=== PATIENT | male | born 1965 | race Caucasian/White ===

== ENCOUNTER 2020-08-28 13:57 | Emergency (ER) | payer SELFPAY ==
--- NOTE | ~2020-08-28 | XR_ITS ---
EXAMINATION: XR shoulder RT min 2V DATE: 08/28/2020 15:38 INDICATION: Right shoulder injury. TECHNIQUE: 4 views of right shoulder were obtained. COMPARISON: None. FINDINGS: There is inferior dislocation of the acromion with respect to distal clavicle. There is wid ening of coracoclavicular interval, consistent with coracoclavicular ligament tear. No fracture. Ther e is severe acromioclavicular joint osteoarthritis. The glenohumeral joint is normal. There are rios es of anterior fusion procedure in cervical spine. IMPRESSION: 1. Type III acromioclavicular separation. 2. Severe acromioclavicular joint osteoarthritis. Reviewed, dictated and finalized at location A.
[2020-08-28 14:58] VITALS: BP 124/72; PULSE 83; RESP 16; TEMP 36.4; O2SAT 96
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
[2020-08-28] MEDS: IBUPROFEN 600 MG TABLET PO (17:07)
[2020-08-28 17:21] VITALS: BP 167/96; PULSE 81; RESP 16; TEMP 36.6; O2SAT 96
== END 2020-08-28 17:22 | disposition home or self-care (01) ==
PROVIDERS: Emergency Provider Family Medicine
DX: S43.141A Inferior dislocation of right acromioclavicular joint, initial encounter (principal); M19.011 Primary osteoarthritis, right shoulder; V86.55XA Driver of 3- or 4- wheeled all-terrain vehicle (ATV) injured in nontraffic accident, initial encounter
CPT/HCPCS: 73030; 99283; A4565; A9270